=== PATIENT | female | born 1995 | race Caucasian/White ===

== ENCOUNTER 2017-09-09 21:18 | Outpatient (CLI) | payer OTHER ==
[2017-09-09 21:53] LABS: APPEARANCE,URINE CLEAR; BILIRUBIN,URINE NEGATIVE (NEGATIVE); COLOR,URINE YELLOW; GLUCOSE, URINE NEGATIVE (NEGATIVE); KETONES,URINE NEGATIVE (NEGATIVE); LEUKOCYTE ESTERASE,URINE NEGATIVE (NEGATIVE); NITRITE,URINE NEGATIVE (NEGATIVE); PROTEIN,URINE NEGATIVE (NEGATIVE); URINE SPECIFIC GRAVITY 1.004; UROBILINOGEN,URINE NEGATIVE mg/dL (<2.0)
[2017-09-09 22:12] LABS: URINE AMPHETAMINES SCREEN NEGATIVE; URINE BARBITURATES SCREEN NEGATIVE; URINE BENZODIAZEPINES SCREEN NEGATIVE; URINE COCAINE SCREEN NEGATIVE; URINE MARIJUANA (THC) SCREEN NEGATIVE; URINE METHADONE SCREEN NEGATIVE; URINE PHENCYCLIDINE SCREEN NEGATIVE
--- NOTE | 2017-09-09 22:52 | Non Stress Test Report ---
Non Stress Test Datetime Report Generated by CPN: 09/09/2017 22:52 DEMOGRAPHIC EGA NST: 37.6 INDICATION Indication for Study: Ordered by Provider; Other Indication for Study (NST) Other: LC MONITORING Monitor Explained: Monitor Explained; Test Explained; Patient Verbalized Understanding Time on Monitor: 09/09/2017 21:34 Time off Monitor: 09/09/2017 22:35 NST Duration: 61 NST INTERVENTIONS NST Interventions: None Physician Notified NST: Dr Cameron BABY A: [id number] BABY A Movement : Present Contraction Frequency : 4-7 FHR Baseline : 140 Accelerations : 15X15 Decelerations : None Variability : Moderate 6-25bpm NST Review: Meets Criteria for Reactive NST NST Review and Verified By : Rosalio Dumont RN NST Results: Reactive NST REPORT Report Trigger: Send Report
== END 2017-09-09 22:46 | disposition home or self-care (01) ==
LOC: LC 21:18
PROVIDERS: ATTEND Obstetrics & Gynecology
PROC: 4A1HXCZ Monitoring of Products of Conception, Cardiac Rate, External Approach (ICD-10-PCS; principal; 2017-09-09)
DX: O47.1 False labor at or after 37 completed weeks of gestation (principal); O36.8130 Decreased fetal movements, third trimester, not applicable or unspecified; Z3A.37 37 weeks gestation of pregnancy
CPT/HCPCS: 59025; 80307; 81001

== ENCOUNTER 2017-09-15 10:15 | Inpatient (IN) | payer OTHER ==
[2017-09-15 11:05] LABS: ABSOLUTE LYMPHOCYTES (AUTO) 1.6 10^3/uL (0.5-4.7); ABSOLUTE MONOCYTES (AUTO) 0.5 10^3/uL (0.1-1.4); ABSOLUTE NEUT (AUTO) 10.2 10^3/uL (1.7-8.2); BASOPHILS % (AUTO) 0.4 % (0-2); HEMATOCRIT 38.6 % (36.0-47.0); HEMOGLOBIN 12.7 g/dL (12.0-15.5); MEAN CORPUSCULAR HGB CONC 32.9 g/dL (32.0-36.0); MEAN CORPUSCULAR VOLUME 85 fl (80-97); PLATELET COUNT 262 10^3/uL (150-450); RED BLOOD COUNT 4.54 10^6/uL (3.72-5.28); RED CELL DISTRIBUTION WIDTH 13.8 % (11.5-14.0); SEGMENTED NEUTROPHILS % (AUTO) 82.6 % (42-78); TOTAL CELLS COUNTED % (AUTO) 100 %; WHITE BLOOD COUNT 12.4 10^3/uL (4.0-10.5)
[2017-09-15 11:21] LABS: ALANINE AMINOTRANSFERASE 118 U/L (5-35); ALBUMIN 3.9 g/dL (3.7-5.6); ALKALINE PHOSPHATASE 199 U/L (50-135); ANION GAP 12 (5-19); ASPARTATE AMINO TRANSFERASE 52 U/L (5-30); BILIRUBIN,DIRECT 0.4 mg/dL (0.0-0.4); BILIRUBIN,TOTAL 0.5 mg/dL (0.2-1.3); BLOOD UREA NITROGEN 6 mg/dL (7-20); CALCIUM 9.9 mg/dL (8.4-10.2); CARBON DIOXIDE 21 mmol/L (22-30); CHLORIDE 107 mmol/L (98-107); GLUCOSE 88 mg/dL (75-110); LDH 403 U/L (340-670); POTASSIUM 4.7 mmol/L (3.6-5.0); SODIUM 139.7 mmol/L (137-145); TOTAL PROTEIN 7.1 g/dL (6.3-8.2); URIC ACID 5.2 mg/dL (2.5-6.2)
[2017-09-15 11:31] LABS: APPEARANCE,URINE CLEAR; BILIRUBIN,URINE NEGATIVE (NEGATIVE); COLOR,URINE YELLOW; GLUCOSE, URINE NEGATIVE (NEGATIVE); KETONES,URINE NEGATIVE (NEGATIVE); LEUKOCYTE ESTERASE,URINE NEGATIVE (NEGATIVE); NITRITE,URINE NEGATIVE (NEGATIVE); PROTEIN,URINE NEGATIVE (NEGATIVE); URINE SPECIFIC GRAVITY 1.012; UROBILINOGEN,URINE NEGATIVE mg/dL (<2.0)
[2017-09-15 11:53] LABS: URINE AMPHETAMINES SCREEN NEGATIVE; URINE BARBITURATES SCREEN NEGATIVE; URINE BENZODIAZEPINES SCREEN NEGATIVE; URINE COCAINE SCREEN NEGATIVE; URINE MARIJUANA (THC) SCREEN NEGATIVE; URINE METHADONE SCREEN NEGATIVE; URINE PHENCYCLIDINE SCREEN NEGATIVE
[2017-09-15 11:56] LABS: UR PRO/CREAT RATIO RESULT 0.2 mg/mg (0.0-0.2); URINE CREATININE 68.8 mg/dL (16-327)
[2017-09-15] MEDS ORDERED: RINGERS SOLUTION,LACTATED 300 ML IV ONE (13:03)
[2017-09-15] MEDS ORDERED: OXYTOCIN/NORMAL SALINE 20 UNIT/1,000 ML RTUINJ IV PRN (13:03)
--- NOTE | 2017-09-15 13:21 | Admission Physical ---
Datetime Report Generated by CPN: 09/15/2017 13:20 CURRENT ADMISSION Hx Assessment: The History has been Reviewed and is Current Chief Complaint: Sent from OB Office for Evaluation and Treatment - Please Specify Chief Complaint Other: IUGR and suspected cholestasis Indication for Induction: IUGR; Other Indication for Induction: Term, Intrauterine Admit Plan: Admit to Unit; Initiate Labor Induction Protocol ALLERGIES Medication Allergies: No Medication Allergies: No Known Allergies (09/15/2017) Latex: No Latex Allergies Food Allergies: none Environmental Allergies: none OBSTETRICAL HISTORY EDC: 09/24/2017 00:00 : 1 Para: 0 Term: 0 : 0 SAB: 0 IAB: 0 Ectopic: 0 Livin Cesareans: 0 VBACs: 0 Multiple Births: 0 Gestational Diabetes: No Rh Sensitization: No Incompetent Cervix: No JEFFREY: No Infertility: No ART Treatment: No Uterine Anomaly: No IUGR: No Hx Previous C/S: No Macrosomia: No Hx Loss/Stillborn: No PIH: No Hx : No Placenta Previa/Abruption: No Depression/PP Depression: No PTL/PROM: No Post Hemorrhage: No Current Procedures: Ultrasound Obstetrical History Comments: G1- current SEE RECORDS Alcohol: No Marijuana : No Cocaine: No Other Illicit Drugs: No Cigarettes: Never Smoker. 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 Heart Disease: No Hosp/Surgery: No Autoimmune Disorder: No Anesthetic Complications: No Kidney Disease: Yes Abnormal Pap Smear: No Neuro/Epilepsy: No Psychiatric Disorders: No Other Medical Diseases: No Hepatitis/Liver Disease: No Significant Family History: No Varicosities/Phlebitis: No Trauma/Violence : No Thyroid Dysfunction: No Medical History Comments: PCOS, kidney stones recurring last October 2015 INFECTIOUS HISTORY Gonorrhea: No Genital Herpes: No Chlamydia: No Tuberculosis: No Syphilis: No Hepatitis: No HIV/AIDS Exposure: No Rash or Viral Illness: No HPV: No PHYSICAL EXAM General: Normal Neurologic: Normal Heart: Normal Lungs: Normal Back: Normal Genitourinary Exam: Normal Pelvic Type: Adequate Vital Signs: Reviewed; Within Normal Limits VAGINAL EXAM Dilatation: 3-4 Effacement: 60 Station: -1 Contraction Comments: irreg MEMBRANES Membranes: Bulging FETUS A EGA: 38.5 Monitoring: External US FHR- Baseline: 145 Variability: Moderate 6-25bpm Accelerations: 15X15 Decelerations: None FHR Category: Category I Estimated Weight (gm): 2700 Presentation: Vertex Admit Comment: 21yo @ 38w5d sent from office for PIH evaluation after elevated BP in office and with questionable cholestasis after itching of hands and feet x2 days. Normal Bps while at L_D, denies headache/blurry vision/RUQ pain or other concerns other than the itching. Elevated liver enzymes, bile acids pending. Pt. is O positive, RI and GBS neg. also with new dx of IUGR at 7%ile today. Will be admitted and induced with pitocin based on exam. Reviewed plan of care with patient and who asked questions and verbalized understanding. Dr. Colindres in unit and concurs with plan. PLANS FOR LABOR AND DELIVERY Labor and Delivery: None Pain Management: Natural Feeding Preference: Breast Benefit of Breast Feed Discussed: Yes Circumcision: No INFORMED CONSENT Assignment: Ruthann Colindres MD Signature: with User ID: Abraham : with User ID: Abraham
[2017-09-15] MEDS ORDERED: LIDOCAINE 1% INJ-PF (10 MG/ML) 30 ML SDV ONE (13:33)
[2017-09-15] MEDS ORDERED: MISOPROSTOL 0.2 MG TABLET ONE (13:33)
[2017-09-15] MEDS ORDERED: OXYTOCIN/NORMAL SALINE 20 UNIT/1,000 ML RTUINJ ONE (13:33)
[2017-09-15] MEDS: RINGERS SOLUTION,LACTATED 1,000 ML IV PRN ×2 (14:16→17:43)
[2017-09-15] MEDS ORDERED: DEXTROSE 5%-LACTATED RINGERS 1,000 ML IV PRN (15:02)
[2017-09-15] MEDS ORDERED: PROMETHAZINE HCL INJ 25 MG/1 ML VIAL IV ONE (17:07)
[2017-09-15] MEDS ORDERED: NALBUPHINE HCL INJ 10 MG/1 ML AMPULE INJ ONE (17:07)
[2017-09-15] MEDS ORDERED: NALBUPHINE HCL INJ 10 MG/1 ML AMPULE ONE (17:08)
[2017-09-15] MEDS ORDERED: PROMETHAZINE HCL INJ 25 MG/1 ML VIAL ONE (17:08)
[2017-09-15] MEDS ORDERED: FENTANYL/BUPIVACAINE/NS/PF 200 MCG/100 ML RTUINJ EPI ONE (19:38)
[2017-09-15] MEDS ORDERED: EPHEDRINE SULFATE INJ 50 MG/1 ML AMPULE ONE (19:38)
[2017-09-15] MEDS ORDERED: BUPIVACAINE HCL 0.25 % INJ/PF (2.5 MG/1 ML) 30 ML VIAL ONE (19:39)
--- NOTE | 2017-09-15 21:02 | L&D Progress Notes ---
PROGRESS NOTES Datetime Report Generated by CPN: 09/15/2017 21:02 PROGRESS NOTE Impression: Normal Progression of Labor Impression Other: IOL for cholestasis with elevated LFTs Procedures: Artificial ROM; Sterile Vag Exam Plan: Continue Present Management; Induction Informed Consent Obtained: Vaginal Delivery; Risks, Benefits and Alternatives Discussed Vital Signs : Reviewed Comment: Pt reported SROM at 1900 and is now comfortable status post epidural. Cvx 7/80/-1 and BB noted which was AROM. Clear fluid noted. Anticpate . Vertex presentation. Per US approx 5# today (IUGR 7%) VAGINAL EXAM Dilatation: 7 Dilatation: 3-4 Effacement: 80 Effacement: 60 Station: -1 Station: -1 Contractions: q 2-3 Contractions: irreg MEMBRANES Membranes: Ruptured Membranes: Bulging Amniotic Fluid Color: Clear FETUS A FHR - Baseline: 145 Variability: Moderate 6-25bpm Accelerations: 15X15 Decelerations: None FHR Category: Category I Estimated Weight (gm): 2700 Presentation: Vertex SIGNATURE SIGNATURE: [id number];[id number];[id number] SIGNATURE: [id number];14,[id number] SIGNATURE: [id number] Signature: with User ID: [email or web address]
[2017-09-16] MEDS ORDERED: DIPHENHYDRAMINE HCL 50 MG/ML VIAL ONE (00:30)
[2017-09-16] MEDS: RINGERS SOLUTION,LACTATED 1,000 ML IV PRN (00:33)
--- NOTE | 2017-09-16 00:41 | L&D Progress Notes ---
PROGRESS NOTES Datetime Report Generated by CPN: 09/16/2017 00:41 PROGRESS NOTE Impression: Normal Progression of Labor Procedures: Sterile Vag Exam Plan: Continue Present Management; Induction Informed Consent Obtained: Vaginal Delivery; Risks, Benefits and Alternatives Discussed Vital Signs : Reviewed Comment: Called to see patient due to feeling the need to push. Was previously told that cervix was Anterior lip. Cvx is actually 8cm. Offered to have anesthesia eval epidural. VAGINAL EXAM Dilatation: 8 Effacement: 80 Station: -1 MEMBRANES Membranes: Ruptured Amniotic Fluid Color: Clear FETUS A FHR - Baseline: 155 Monitoring: External US Variability: Moderate 6-25bpm Accelerations: 15X15 Decelerations: None FHR Category: Category I FETUS C SIGNATURE: [id number];[id number];[id number] Signature: with User ID: [email or web address]
[2017-09-16] MEDS ORDERED: LIDOCAINE 2% INJ-PF (20 MG/ML) 10 ML AMPUL ONE (01:08)
--- NOTE | 2017-09-16 01:58 | Warning Signs in Babies ---
VOD Warning Signs Datetime Report Generated by [facility]: 09/16/2017 01:58 VOD#608 -Warning Signs in Babies: Viewed with Parent(s)/Family (09/16/2017 01:45:Bhavya Lopez RN)
[2017-09-16] MEDS ORDERED: ACETAMINOPHEN WITH CODEINE #3 TABLET PO PRN (02:20)
[2017-09-16] MEDS ORDERED: PROMETHAZINE HCL 25 MG SUPP.RECT PR PRN (02:20)
[2017-09-16] MEDS ORDERED: ZOLPIDEM TARTRATE 5 MG TABLET PO PRN (02:20)
[2017-09-16] MEDS ORDERED: ACETAMINOPHEN 325 MG TABLET PO PRN (02:20)
[2017-09-16] MEDS ORDERED: GLYCERIN/WITCH HAZEL LEAF 1 EACH MED..PAD TP PRN (02:20)
[2017-09-16] MEDS ORDERED: DIPHENHYDRAMINE HCL 25 MG CAPSULE PO PRN (02:20)
[2017-09-16] MEDS ORDERED: BENZOCAINE/MENTHOL AEROSOL SPRAY 56 ML TOP PRN (02:20)
[2017-09-16] MEDS ORDERED: OXYTOCIN/NORMAL SALINE 20 UNIT/1,000 ML RTUINJ IV PRN (02:20)
[2017-09-16] MEDS ORDERED: PROMETHAZINE HCL 25 MG TABLET PO PRN (02:20)
[2017-09-16] MEDS ORDERED: MAGNESIUM HYDROXIDE SUSP 30 ML UDCUP PO PRN (02:20)
[2017-09-16] MEDS ORDERED: NA PHOS,M-B/NA PHOS,DI-BA (ADULT) 133 ML ENEMA PR PRN (02:20)
[2017-09-16] MEDS ORDERED: MEASLES,MUMPS&RUBELLA VACC/PF 0.5 ML VIAL SUBCUT PRN (02:20)
[2017-09-16] MEDS ORDERED: DIBUCAINE 1% OINTMENT 28 GM TP PRN (02:20)
[2017-09-16] MEDS ORDERED: PROMETHAZINE HCL INJ 25 MG/1 ML VIAL IV PRN (02:20)
[2017-09-16] MEDS ORDERED: PSEUDOEPHEDRINE HCL 30 MG TABLET PO PRN (02:20)
[2017-09-16] MEDS ORDERED: DIPH/PERTUSS(ACELL)/TETANUS VAC/PF 0.5 ML SYR (>=10YO) IM PRN (02:20)
[2017-09-16] MEDS ORDERED: ACETAMINOPHEN WITH CODEINE #3 TABLET ONE (02:22)
--- NOTE | 2017-09-16 03:34 | Delivery Summary ---
Del Sum A-C Datetime Report Generated by CPN: 09/16/2017 03:33 DELIVERY PERSONNEL DELIVERY PERSONNEL: [id number] Delivery Doctor:: Ruthann Colindres MD Anesthesiologist:: Rick Mcclellan MD Labor and Delivery Nurse:: Bhavya Lopez RNoperators teacher Nurse:: Camelia Chiang RN Hydropress Operator/COMMERCIAL LINES ACCOUNT EXECUTIVE: Hien Green, ST MATERNAL INFORMATION Delivery Anesthesia: Epidural Medications After Delivery: Pitocin Drip 20 Units/1000ml NSS Estimated Blood Loss (ml): 350 Maternal Complications: None Provider Comments: VMI delivered in Direct OA presentation with compound right hand. Shoulders and body delivered without difficulty. Cord doubly clamped and to maternal abd. Placenta delivered intact spontaneously and sent for pathology due to IUGR. FF at U. No perineal lacerations. Mother and baby stable upon provider leaving the room. LABOR SUMMARY EDC: 09/24/2017 00:00 No. Babies in Womb: 1 Attempted: No Labor Anesthesia: Epidural LABOR INFORMATION Reason for Induction: Intrauterine Growth Retardation; Other Reason for Induction- Other: cholestasis Onset of Labor: 09/15/2017 20:51 Complete Dilatation: 09/16/2017 01:10 Oxytocin: Induction Group B Beta Strep: negative Antibiotics # of Doses: 0 Steroids Given: None Reason Steroids Not Administered: Not Applicable MEMBRANES Membranes Rupture Method: Artificial Rupture of Membranes: 09/15/2017 20:51 Length of Rupture (hr): 4.58 Amniotic Fluid Color: Clear Amniotic Fluid Amount: Large Amniotic Fluid Odor: Normal STAGES OF LABOR Stage 1 hr: 4 Stage 1 min: 19 Stage 2 hr: 0 Stage 2 min: 16 Stage 3 hr: 0 Stage 3 min: 2 Total Time in Labor hr: 4 Total Time in Labor min: 37 VAGINAL DELIVERY Episiotomy: None Laceration #1: None Laceration Extension #1: N/A Laceration Repair: Not Applicable Sponge Count Correct: N/A Sharps Count Correct: N/A CSECTION DELIVERY Primary Indication: N/A Secondary Indication: N/A CSection Incidence: N/A Labor: N/A Elective: N/A CSection Incision: N/A BABY A INFORMATION Delivery Date/Time: 09/16/2017 01:26 Method of Delivery: Vaginal Born in Route : No : N/A Forceps: N/A Vacuum Extraction: N/A Shoulder Dystocia : No PRESENTATION/POSITION BABY A Presentation: Cephalic Cephalic Presentation: Vertex Vertex Position: Direct Occipital Anterior Breech Presentation: N/A PLACENTA INFORMATION BABY A Placenta Delivery Time : 09/16/2017 01:28 Placenta Method of Delivery: Spontaneous Placenta Status: Delivered SCORES BABY A Heart Rate 1 min: >100 bpm Resp Effort 1 min: Good Cry Reflex Irritability 1 min: Cough or Sneeze or Pulls Away Muscle Tone 1 min: Active Motion Color 1 min: Body [place], Extremities Blue Resuscitation Effort 1 min: Tactile Stimulation SCORE 1 MIN: 9 Heart Rate 5 min: >100 bpm Resp Effort 5 min: Good Cry Reflex Irritability 5 min: Cough or Sneeze or Pulls Away Muscle Tone 5 min: Active Motion Color 5 min: Body [place], Extremities Blue Resuscitation Effort 5 min: N/A SCORE 5 MIN: 9 INFORMATION BABY A Gestational Age at Delivery: 38.6 Gestational Status: Early Term- 37- 38.6 Weeks Outcome : Liveborn Infant Condition : Stable Sex: Male IDENTIFICATION BABY A Verification Date/Time: 09/16/2017 01:58 ID Band Number: [id number] Mother's Name Verified: Yes Infant RN Verifying : NDoyle RN Additional Verifying Personnel: RFox RN CORD INFORMATION BABY A No. Cord Vessels: 3 Nuchal Cord : N/A Nuchal Cord- Other: R compound hand Cord Blood Taken: Yes-For Eval (Mom's Blood Type - or O+) Infant Suction: None ASSESSMENT BABY A Physical Findings at Delivery: Within Normal Limits Respirations: Appears Normal Skin to Skin: Yes Insurance Agency Manager/ALS Called : No Infant Care By: KWessel Transferred To: Remains with Mother BABY B INFORMATION : N/A SIGNATURES Signature: with User ID: [email or web address]
[2017-09-16] MEDS: IBUPROFEN 800 MG TABLET PO SCH ×3 (05:29→21:06)
--- NOTE | 2017-09-16 09:02 | PDOC PROGRESS REPORT ---
Subjective-OB Progress Note for:: 09/16/17 Subjective: Doing well, holding baby, voiding, scant bleeding Physical Exam (OB) Vital Signs: Temp Pulse Resp BP Pulse Ox 98.2 F 73 16 123/58 L 98 09/16/17 04:21 09/16/17 04:21 09/16/17 04:21 09/16/17 04:21 09/16/17 04:21 Intake & Output 09/15/17 09/16/17 09/17/17 06:59 06:59 06:59 Weight 76.2 kg - Lochia Lochia Amount: Small 10-25 ml Lochia Color: Rubra/Red - Abdomen Description: Soft Hernia Present: No Fundal Description: Firm, Midline Fundal Height: u/u - u/2 Objective-Diagnostic Laboratory: 09/15/17 10:34 09/15/17 10:34 09/15/17 09/15/17 09/15/17 10:34 10:34 10:36 WBC 12.4 H RBC 4.54 Hgb 12.7 Hct 38.6 MCV 85 MCH 28.0 MCHC 32.9 RDW 13.8 Plt Count 262 Seg Neutrophils % 82.6 H Lymphocytes % 13.0 Monocytes % 4.0 Eosinophils % 0.0 Basophils % 0.4 Absolute Neutrophils 10.2 H Absolute Lymphocytes 1.6 Absolute Monocytes 0.5 Absolute Eosinophils 0.0 Absolute Basophils 0.0 Sodium 139.7 Potassium 4.7 Chloride 107 Carbon Dioxide 21 L Anion Gap 12 BUN 6 L Creatinine 0.53 Est GFR ( Amer) > 60 Est GFR (Non-Af Amer) > 60 Glucose 88 Uric Acid 5.2 Calcium 9.9 Total Bilirubin 0.5 AST 52 H ALT 118 H Alkaline Phosphatase 199 H Total Protein 7.1 Albumin 3.9 Urine Color YELLOW Urine Appearance CLEAR Urine pH 6.0 Ur Specific [place] 1.012 Urine Protein NEGATIVE Urine Glucose (UA) NEGATIVE Urine Ketones NEGATIVE Urine Blood MODERATE H Urine Nitrite NEGATIVE Ur Leukocyte Esterase NEGATIVE Blood Type Antibody Screen 09/15/17 13:54 WBC RBC Hgb Hct MCV MCH MCHC RDW Plt Count Seg Neutrophils % Lymphocytes % Monocytes % Eosinophils % Basophils % Absolute Neutrophils Absolute Lymphocytes Absolute Monocytes Absolute Eosinophils Absolute Basophils Sodium Potassium Chloride Carbon Dioxide Anion Gap BUN Creatinine Est GFR ( Amer) Est GFR (Non-Af Amer) Glucose Uric Acid Calcium Total Bilirubin AST ALT Alkaline Phosphatase Total Protein Albumin Urine Color Urine Appearance Urine pH Ur Specific [place] Urine Protein Urine Glucose (UA) Urine Ketones Urine Blood Urine Nitrite Ur Leukocyte Esterase Blood Type O POSITIVE Antibody Screen NEGATIVE Assessment and Plan(PN) - Assessment and Plan (1) Vaginal delivery Is this a current diagnosis for this admission?: Yes (2) Intrauterine growth restriction, delivered, current hospitalization Is this a current diagnosis for this admission?: Yes (3) Cholestasis during Qualifiers: Trimester: third trimester Qualified Code(s): O26.613 - Liver and biliary tract disorders in , third trimester; K83.1 - Obstruction of bile duct ; K83.1 - Obstruction of bile duct Is this a current diagnosis for this admission?: Yes - Time Spent with Patient Time with patient: Less than 15 minutes Medications reviewed and adjusted accordingly: Yes - Disposition Anticipated Discharge: Home Within: within 48 hours
[2017-09-16] MEDS: FAMOTIDINE 20 MG TABLET PO SCH ×2 (10:32→21:05)
[2017-09-16] MEDS: DOCUSATE SODIUM 100 MG CAPSULE PO SCH ×2 (10:37→18:39)
[2017-09-16] MEDS: PRENATAL VITAMIN W DHA CAPSULE PO SCH (10:37)
[2017-09-16] MEDS: FERROUS SULFATE 325 MG TABLET PO SCH ×2 (10:37→18:39)
[2017-09-16] MEDS: SENNOSIDES/DOCUSATE 8.6-50 MG 1 EACH TABLET PO SCH (10:37)
[2017-09-16] MEDS: ACETAMINOPHEN WITH CODEINE #3 TABLET PO PRN (12:07)
[2017-09-17] MEDS: ACETAMINOPHEN WITH CODEINE #3 TABLET PO PRN ×2 (02:02→12:26)
[2017-09-17] MEDS: IBUPROFEN 800 MG TABLET PO SCH ×3 (05:23→21:07)
[2017-09-17 07:55] LABS: HEMATOCRIT 34.5 % (36.0-47.0); HEMOGLOBIN 11.3 g/dL (12.0-15.5); MEAN CORPUSCULAR HEMOGLOBIN 28.1 pg (27.0-33.4); MEAN CORPUSCULAR HGB CONC 32.6 g/dL (32.0-36.0); MEAN CORPUSCULAR VOLUME 86 fl (80-97); PLATELET COUNT 195 10^3/uL (150-450)
--- NOTE | 2017-09-17 09:48 | PDOC PROGRESS REPORT ---
Subjective-OB Progress Note for:: 09/17/17 Physical Exam (OB) Vital Signs: Temp Pulse Resp BP Pulse Ox 97.6 F 66 15 135/76 H 100 09/17/17 08:16 09/17/17 08:16 09/17/17 08:16 09/17/17 08:16 09/17/17 08:16 Intake & Output 09/16/17 09/17/17 09/18/17 06:59 06:59 06:59 Intake Total 650 Balance 650 Weight 76.2 kg - PIH/Pre-Eclampsia Headache: Absent Epigastric Pain: No Visual Changes: No - Lochia Lochia Amount: Scant < 10 ml Lochia Color: Rubra/Red - Abdomen Description: Soft Hernia Present: No Fundal Description: Firm, Midline Fundal Height: u/u - u/2 - Respiratory Breath sounds: Clear - Extremities Calf: Normal Objective-Diagnostic Laboratory: 09/17/17 07:01 09/15/17 10:34 09/17/17 07:01 WBC 11.0 H RBC 4.00 Hgb 11.3 L Hct 34.5 L MCV 86 MCH 28.1 MCHC 32.6 RDW 14.0 Plt Count 195 Assessment and Plan(PN) - Assessment and Plan (1) Vaginal delivery Is this a current diagnosis for this admission?: Yes - Time Spent with Patient Time with patient: Less than 15 minutes Medications reviewed and adjusted accordingly: Yes - Disposition Anticipated Discharge: Home Within: within 24 hours
[2017-09-17] MEDS: DOCUSATE SODIUM 100 MG CAPSULE PO SCH ×2 (09:49→17:50)
[2017-09-17] MEDS: SENNOSIDES/DOCUSATE 8.6-50 MG 1 EACH TABLET PO SCH (09:49)
[2017-09-17] MEDS: FAMOTIDINE 20 MG TABLET PO SCH ×2 (09:49→21:07)
[2017-09-17] MEDS: PRENATAL VITAMIN W DHA CAPSULE PO SCH (09:49)
[2017-09-17] MEDS: FERROUS SULFATE 325 MG TABLET PO SCH ×2 (09:50→17:50)
[2017-09-18] MEDS: ACETAMINOPHEN WITH CODEINE #3 TABLET PO PRN (02:21)
[2017-09-18] MEDS: IBUPROFEN 800 MG TABLET PO SCH (05:04)
[2017-09-18 08:36] VITALS: BP 125/80
--- NOTE | 2017-09-18 09:33 | PDOC DISCHARGE SUMMARY ---
Final Diagnosis Discharge Date: 09/18/17 - Final Diagnosis (1) Cholestasis during Is this a current diagnosis for this admission?: Yes (2) Intrauterine growth restriction, delivered, current hospitalization Is this a current diagnosis for this admission?: Yes (3) Vaginal delivery Is this a current diagnosis for this admission?: Yes Discharge Data - Discharge Medication Prescriptions: Docusate Sodium [Colace 100 mg Capsule] 100 mg PO BID #60 capsule Ibuprofen [Motrin 800 mg Tablet] 800 mg PO Q8 #60 tablet Home Medications: Pnv No.95/Ferrous Fum/Folic AC [ Multivitamin Tablet] 1 each PO DAILY Docusate Sodium [Colace 100 mg Capsule] 100 mg PO BID #60 capsule 09/18/17 Ibuprofen [Motrin 800 mg Tablet] 800 mg PO Q8 #60 tablet 09/18/17 Gestational Age: 38.6 Reason(s) for Admission: Other - cholestasis of , iugr Procedures: NST Intrapartum Procedure(s): Spontaneous Vaginal Delivery - Diagnosis Test Laboratory: Temp Pulse Resp BP Pulse Ox 97.7 F 68 15 125/80 100 09/18/17 07:36 09/18/17 07:36 09/18/17 07:36 09/18/17 07:36 09/18/17 07:36 09/15/17 09/15/17 09/17/17 10:34 10:36 07:01 RBC 4.54 4.00 Hgb 12.7 11.3 L Hct 38.6 34.5 L Urine Opiates Screen NEGATIVE - Discharge information/Instructions Discharge Activity: Activity As Tolerated, Pelvic Rest, No tub bath Discharge Diet: Regular Disposition: HOME, SELF-CARE Follow up with: [facility] in: 4, Weeks
[2017-09-18] MEDS: SENNOSIDES/DOCUSATE 8.6-50 MG 1 EACH TABLET PO SCH (09:37)
[2017-09-18] MEDS: DOCUSATE SODIUM 100 MG CAPSULE PO SCH (09:37)
[2017-09-18] MEDS: FAMOTIDINE 20 MG TABLET PO SCH (09:37)
[2017-09-18] MEDS: FERROUS SULFATE 325 MG TABLET PO SCH (09:37)
[2017-09-18] MEDS: PRENATAL VITAMIN W DHA CAPSULE PO SCH (09:37)
== END 2017-09-18 13:44 | disposition home or self-care (01) | DRG 775 ==
LOC: LC 10:15 → LR 12:03 → 2S 09-16 03:41
PROVIDERS: ADMIT Student in an Organized Health Care Education/Training Program; ATTEND Student in an Organized Health Care Education/Training Program
PROC: 10E0XZZ Delivery of Products of Conception, External Approach (ICD-10-PCS; principal; 2017-09-16)
PROC: 4A1HXCZ Monitoring of Products of Conception, Cardiac Rate, External Approach (ICD-10-PCS; 2017-09-16)
PROC: 10907ZC Drainage of Amniotic Fluid, Therapeutic from Products of Conception, Via Natural or Artificial Opening (ICD-10-PCS; 2017-09-16)
DX: O36.5930 Maternal care for other known or suspected poor fetal growth, third trimester, not applicable or unspecified (principal); K83.1 Obstruction of bile duct; O26.62 Liver and biliary tract disorders in childbirth; O32.6XX0 Maternal care for compound presentation, not applicable or unspecified; Z37.0 Single live birth; Z3A.38 38 weeks gestation of pregnancy; Z87.442 Personal history of urinary calculi
CPT/HCPCS: 36415; 80053; 80307; 81005; 82239; 82570; 83615; 84156; 84550; 85025; 85027; 86592; 86850; 86900; 86901; 88307; 94760; J1200; J2300; J2550; J2590; J3490

== ENCOUNTER 2019-11-24 21:40 | Emergency (ER) | payer OTHER ==
[2019-11-24] MEDS ORDERED: KETOROLAC TROMETHAMINE INJ/PF 30 MG/1 ML SDV IM ONE (22:19)
[2019-11-24] MEDS ORDERED: NORMAL SALINE 1000 ML 1,000 ML IV ONE (22:20)
--- NOTE | 2019-11-24 22:22 | ER Document Report ---
ED Medical Screen (RME) - General Chief Complaint: Abdominal Pain Stated Complaint: ABDOMINAL PAIN Time Seen by Provider: 11/24/19 22:11 Primary Care Provider: BRANNON REA MD [Primary Care Provider] - Follow up as needed Mode of Arrival: Ambulatory Information source: Patient Notes: 24-year-old female presented to ED for right upper quadrant abdominal pain since morning. She states about 5 PM she took 200 mg of ibuprofen and the pain did not get any better. She states about 8 PM the pain was so bad that it became hard to brace for a little while. She states she is able to breathe now but the pain is still pretty bad. She states that she had a turkey and cheese sandwich with mayonnaise for supper tonight. She does have a history of kidney stones. Last menstrual period was November 04. She states she does not smoke drink or use any illicit drugs. Patient is alert oriented respirations regular and unlabored speaking in full sentences. We have given her Toradol injection in the pit area and I have ordered blood urine and ultrasound of the right upper quadrant. I have greeted and performed a rapid initial assessment of this patient. A comprehensive ED assessment and evaluation of the patient, analysis of test results and completion of medical decision making process will be conducted by an additional ED providers. TRAVEL OUTSIDE OF THE [place] IN LAST 30 DAYS: No - Related Data Allergies/Adverse Reactions: No Known Allergies Allergy (Verified 09/15/17 10:33) Home Medications: vitamins Physical Exam - Vital signs Vitals: Temp Pulse Resp BP Pulse Ox 99.0 F 82 16 141/66 H 99 11/24/19 21:44 11/24/19 21:44 11/24/19 21:44 11/24/19 21:44 11/24/19 21:44 Course - Vital Signs Vital signs: Temp Pulse Resp BP Pulse Ox 99 F 82 16 141/66 H 99 11/24/19 22:09 11/24/19 21:44 11/24/19 21:44 11/24/19 21:44 11/24/19 21:44 Doctor's Discharge - Discharge Referrals: BRANNON REA MD [Primary Care Provider] - Follow up as needed
[2019-11-24 22:46] LABS: ABSOLUTE BASOPHILS # (AUTO) 0.1 10^3/uL (0.0-0.2); ABSOLUTE EOSINOPHILS # (AUTO) 0.4 10^3/uL (0.0-0.6); ABSOLUTE LYMPHOCYTES (AUTO) 2.2 10^3/uL (0.5-4.7); ABSOLUTE MONOCYTES (AUTO) 0.7 10^3/uL (0.1-1.4); ABSOLUTE NEUT (AUTO) 6.9 10^3/uL (1.7-8.2); BASOPHILS % (AUTO) 0.6 % (0-2); EOSINOPHILS % (AUTO) 3.9 % (0-6); HEMATOCRIT 38.6 % (36.0-47.0); LYMPHOCYTES % (AUTO) 21.3 % (13-45); MEAN CORPUSCULAR HEMOGLOBIN 28.6 pg (27.0-33.4); MEAN CORPUSCULAR HGB CONC 33.7 g/dL (32.0-36.0); MEAN CORPUSCULAR VOLUME 85 fl (80-97); MONOCYTES % (AUTO) 6.7 % (3-13); PLATELET COUNT 325 10^3/uL (150-450); RED BLOOD COUNT 4.55 10^6/uL (3.72-5.28); RED CELL DISTRIBUTION WIDTH 13.8 % (11.5-14.0); SEGMENTED NEUTROPHILS % (AUTO) 67.5 % (42-78); TOTAL CELLS COUNTED % (AUTO) 100 %; WHITE BLOOD COUNT 10.2 10^3/uL (4.0-10.5)
[2019-11-24 22:48] LABS: APPEARANCE,URINE SLIGHTLY-CLOUDY; BILIRUBIN,URINE NEGATIVE (NEGATIVE); COLOR,URINE YELLOW; GLUCOSE, URINE NEGATIVE (NEGATIVE); KETONES,URINE NEGATIVE (NEGATIVE); LEUKOCYTE ESTERASE,URINE MODERATE (NEGATIVE); NITRITE,URINE NEGATIVE (NEGATIVE); PROTEIN,URINE NEGATIVE (NEGATIVE); URINE SPECIFIC GRAVITY 1.023; UROBILINOGEN,URINE NEGATIVE mg/dL (<2.0)
[2019-11-24 23:03] LABS: ALBUMIN 4.5 g/dL (3.5-5.0); ALKALINE PHOSPHATASE 84 U/L (38-126); ANION GAP 10 (5-19); ASPARTATE AMINO TRANSFERASE 16 U/L (14-36); BILIRUBIN,TOTAL 0.2 mg/dL (0.2-1.3); BLOOD UREA NITROGEN 12 mg/dL (7-20); CALCIUM 9.5 mg/dL (8.4-10.2); CARBON DIOXIDE 25 mmol/L (22-30); CHLORIDE 103 mmol/L (98-107); GLUCOSE 94 mg/dL (75-110); POTASSIUM 3.9 mmol/L (3.6-5.0); TOTAL PROTEIN 7.7 g/dL (6.3-8.2)
--- NOTE | 2019-11-24 23:41 | ER Document Report ---
ED General - General Chief Complaint: Abdominal Pain Stated Complaint: ABDOMINAL PAIN Time Seen by Provider: 11/24/19 22:11 Primary Care Provider: BRANNON REA MD [ACTIVE STAFF] - Follow up as needed Mode of Arrival: Ambulatory TRAVEL OUTSIDE OF THE [place] IN LAST 30 DAYS: No - HPI Notes: Chief complaint: Abdominal pain nausea and vomiting History of present illness: 24-year-old female had sudden onset right upper quadrant discomfort this afternoon associated with nausea and vomiting which dev eloped about an hour and a half after she ate a turkey sandwich. No fever or chills. Pain radiated into right side of back. Ultimately relieved after she got here and was seen by midlevel provider at triage who gave her Toradol IM. She is currently pain-free. She still mildly nauseated. Patient denies dysuria. She denies hematuria. Patient reports that she had a lithotripsy at age 18 for a kidney stone. She denies any known history of gallbladder disease. No past abdominal surgery. No known exposure to ill individuals. Specifically denies exposure to COVID virus. No recent travel. - Related Data Allergies/Adverse Reactions: No Known Allergies Allergy (Verified 09/15/17 10:33) Home Medications: vitamins Past Medical History - General Information source: Patient - Social History Smoking Status: Never Smoker Family History: Reviewed & Not Pertinent Patient has homicidal ideation: No Renal/ Medical History: Reports: Hx Kidney Stones Review of Systems - Review of Systems Notes: Constitutional: Negative for fever. HENT: Negative for sore throat. Eyes: Negative for visual changes. Cardiovascular: Negative for chest pain. Respiratory: Negative for shortness of breath. Gastrointestinal: As per HPI. Genitourinary: As per HPI. Musculoskeletal: As per HPI. Skin: Negative for rash. Neurological: Negative for headaches, weakness or numbness. 10 point ROS negative except as marked above and in HPI. Physical Exam - Vital signs Vitals: Temp Pulse Resp BP Pulse Ox 99.0 F 82 16 141/66 H 99 11/24/19 21:44 11/24/19 21:44 11/24/19 21:44 11/24/19 21:44 11/24/19 21:44 - Notes Notes: GENERAL: Female patient approximately stated age currently appears comfortable. SKIN: Good turgor no rashes. HEAD: Normocephalic atraumatic. EYES: PERRLA. EOMI. Conjunctivae and sclerae clear. EARS: CANALS AND TMS CLEAR. NOSE: CLEAR. MOUTH: Moist mucosa. Good dentition. No stridor or edema. No drooling. NECK: Supple. No masses or thyromegaly. No adenopathy. Carotids 2+ without bruits. No JVD. BACK: Symmetrical without tenderness. CHEST: Respirations unlabored. Breath sounds clear and symmetrical. HEART: Regular rhythm. No murmur gallop or rub. ABDOMEN: Minimal tenderness on deep palpation right upper quadrant. Soft without masses, organomegaly or rebound. Bowel sounds normally active. No bruits. GENITALIA: Deferred. EXTREMITIES: No edema. No calf tenderness. Cap refill less than 1.5 seconds. Dorsalis pedis and posterior tibial pulses 3+ and symmetrical. NEUROLOGICAL: GCS 15. Alert and oriented x3. Normal gait. Fluent speech. Cranial nerves II through XII intact. Sensorimotor and cerebellar normal. Normal tone. PSYCHIATRIC: Appropriate affect. Course - Re-evaluation Re-evalutation: 11/25/19 01:52 Patient's discomfort was completely relieved by IM Toradol administered at triage. White count is normal. Chemistry profile is unremarkable. She has some pyuria and leukocyte esterase on urinalysis. Gallbladder ultrasound was negative. CT abdomen pelvis was obtained because of patient's prior history of renal stones but showed no obstructing stone. Patient appears to have an early right-sided pyelonephritis. She was started on a dose of IV Rocephin here will be discharged on Keflex and instructed to follow-up with her primary care physician within the next 24 hours. She will return here for new or worsening symptoms. - Vital Signs Vital signs: Temp Pulse Resp BP Pulse Ox 99 F 82 16 141/66 H 99 11/24/19 22:09 11/24/19 21:44 11/24/19 21:44 11/24/19 21:44 11/24/19 21:44 - Laboratory Result Diagrams: 11/24/19 22:30 11/24/19 22:30 Laboratory results interpreted by me: 11/24/19 22:30 Urine Blood SMALL H Ur Leukocyte Esterase MODERATE H - Diagnostic Test Radiology reviewed: Reports reviewed - Right upper quadrant ultrasound per radiologist: Fatty infiltration liver. Gallbladder normal Noncontrast CT a bdomen/pelvis per radiologist: Punctate calcifications of kidneys. No obstructing stone. Discharge - Discharge Clinical Impression: Acute pyelonephritis Condition: Stable Disposition: HOME, SELF-CARE Additional Instructions: Pyelonephritis Your evaluation shows evidence of pyelonephritis. This is an infection in the kidney. Typical symptoms are fever, pain in the flank, pain on urination, and frequent urination. Many cases of pyelonephritis can be treated at home. Hospital care may be necessary for patients who are very ill, or elderly or . Pyelonephritis is treated with antibiotics. Be sure to take all the medication as prescribed. Drink plenty of liquids (about three quarts per day). You may take acetaminophen for fever. You should feel significantly improved within two days. You should have a recheck of your urine in about one week to insure that the infection is gone. Return for a re-examination if your symptoms worsen in any way -- such as high fever, shaking chills, severe weakness or dizziness, severe pain, or inability to pass your urine. Increase oral fluid intake. Take prescribed medication as instructed. See your doctor within the next 24 to 48 hours for reevaluation. Return here as needed for new or worsening symptoms: Pain that is worsening or unimproved Uncontrolled vomiting High fever or shaking chills Overall worsening Prescriptions: Cephalexin Monohydrate [Keflex 500 mg Capsule] 500 mg PO Q6H 10 Days #40 capsule Referrals: BRANNON REA MD [ACTIVE STAFF] - Follow up as needed
--- NOTE | 2019-11-25 00:27 | RADIOLOGY REPORT (SQ) ---
EXAM DESCRIPTION: US ABDOMEN LIMITED COMPLETED DATE/TME: 11/24/2019 22:19 CLINICAL HISTORY: 24 years Female, right upper quad pain Comparison: None. LIMITATIONS: Bowel gas and body habitus artifact. FINDINGS: Gallbladder, negative sonographic Fontanez's test, mild hepatic steatosis, a 0.3-cm diameter common bile duct, no intrahepatic ductal dilation, hepatopetal patent flow of the portal vein, 11-cm right kidney, partially obscured pancreas, visualized vasculature/abdominal aorta, and no significant ascites appear otherwise unremarkable. IMPRESSION: No acute findings. Hepatic steatosis.
[2019-11-25] MEDS ORDERED: CEFTRIAXONE INJ 1000 MG VIAL IV ONE (01:45)
--- NOTE | 2019-11-25 01:45 | RADIOLOGY REPORT (SQ) ---
CLINICAL INDICATION: Right flank and RUQ pain. . TECHNIQUE: Noncontrast spiral axial CT imaging was obtained of the abdomen and pelvis with multiplanar reconstructions. This exam was performed according to our departmental dose-optimization program, which includes automated exposure control, adjustment of the mA and/or kV according to patient size and/or use of iterative reconstruction techniques. COMPARISON: None. CORRELATION: None. FINDINGS: Abdomen: The lung bases are grossly clear. The heart is of normal size. No evidence of pleural or pericardial fluid. The liver is of normal size contour and attenuation. The gallbladder is physiologically distended without inflammatory change. The pancreas is of grossly normal contour on this noncontrast examination. The spleen is unremarkable. The adrenals are unremarkable. The kidneys demonstrate punctate nonobstructing nephrolithiasis bilaterally. No obstructive uropathy. There is no evidence of free air. Trace free fluid. No bulky adenopathy. Abdominal aorta is nonaneurysmal. Pelvis: The bowel is nonobstructed. The bowel is unopacified with oral contrast. Pelvic contents are unremarkable. The appendix is not seen. Visualized bones are unremarkable. IMPRESSION: Punctate nonobstructing nephrolithiasis. No obstructive uropathy hydronephrosis or hydroureter.
[2019-11-25] MEDS ORDERED: HYDROCODONE/ACETAMINOPHEN 5-325 MG (6 TAB/ER DISP) PO PRN (01:49)
[2019-11-25] MEDS ORDERED: ONDANSETRON ODT 4 MG TAB (6 TAB/ER DISP) PO PRN (01:49)
[2019-11-25 02:35] VITALS: BP 122/65
== END 2019-11-25 02:39 | disposition home or self-care (01) ==
LOC: ER 21:40
DX: N10 Acute pyelonephritis (principal); R10.9 Unspecified abdominal pain; R11.2 Nausea with vomiting, unspecified; R10.11 Right upper quadrant pain; M54.9 Dorsalgia, unspecified
CPT/HCPCS: 36415; 83690; 84703; 85025; 80053; 81001; 76705; 74176; J1885; J0696; J7030

== ENCOUNTER 2020-03-03 13:47 | Emergency (ER) | payer OTHER ==
[2020-03-03] MEDS ORDERED: CEPHALEXIN 500 MG CAPSULE PO ONE (13:55)
[2020-03-03] MEDS ORDERED: IBUPROFEN 800 MG TABLET PO ONE (13:55)
[2020-03-03] MEDS ORDERED: SULFAMETHOXAZOLE/TRIMETHOPRIM 800-160 MG TABLET PO ONE (13:55)
--- NOTE | 2020-03-03 13:56 | ER Document Report ---
HPI - HPI Patient complains to provider of: Leg infection Time Seen by Provider: 03/03/20 13:51 Onset: Other - 3 days Onset/Duration: Worse Quality of pain: Achy Pain Level: 3 Context: Patient presents complaining of insect bite that is gotten infected to the left lower extremity. Patient denies any fever. Patient denies any history of MRSA. Associated Symptoms: Other - Left leg infection Exacerbated by: Denies Relieved by: Denies Similar symptoms previously: No Recently seen / treated by doctor: No - ROS ROS below otherwise negative: Yes Systems Reviewed and Negative: Yes All other systems reviewed and negative - CONSTITUTIONAL Constitutional: DENIES: Fever - REPRODUCTIVE Reproductive: DENIES: : - MUSCULOSKELETAL Musculoskeletal: REPORTS: Extremity pain, Swelling - DERM Skin Color: Erythema Past Medical History - General Information source: Patient - Social History Smoking Status: Never Smoker Frequency of alcohol use: Occasional Drug Abuse: None Occupation: None Family History: Reviewed & Not Pertinent Renal/ Medical History: Reports: Hx Kidney Stones Surgical Hx: Negative Vertical Provider Document - CONSTITUTIONAL Agree With Documented VS: Yes Exam Limitations: No Limitations General Appearance: WD/WN, No Apparent Distress - INFECTION CONTROL TRAVEL OUTSIDE OF THE [place] IN LAST 30 DAYS: No - HEENT HEENT: Atraumatic, Normocephalic - NECK Neck: Normal Inspection - RESPIRATORY Respiratory: Breath Sounds Normal, No Respiratory Distress - CARDIOVASCULAR Cardiovascular: Regular Rate, Regular Rhythm - MUSCULOSKELETAL/EXTREMETIES Musculoskeletal/Extremeties: MAEW - NEURO Level of Consciousness: Awake, Alert, Appropriate Motor/Sensory: No Motor Deficit - DERM Integumentary: Warm, Dry, Abscess - Anterior aspect of left lower extremity with surrounding erythema Course - Vital Signs Vital signs: Temp Pulse Resp BP Pulse Ox 98.3 F 95 16 147/77 H 99 03/03/20 13:52 03/03/20 13:52 03/03/20 13:52 03/03/20 13:52 03/03/20 13:52 Procedures - Incision and Drainage Left Leg Type: Simple Anesthetic type: 1% Lidocaine Blade size: 11 I&D procedure: Betadine prep applied Incision Method: Incision made by scalpel Amount/type of drainage: Scant amount of purulent drainage Adult Front & Back picture: 1 - Abscess with surrounding cellulitis Discharge - Discharge Clinical Impression: Abscess, Encounter for incision and drainage procedure Cellulitis Qualifiers: Site of cellulitis: extremity Site of cellulitis of extremity: lower extremity Laterality: left Qualified Code(s): L03.116 - Cellulitis of left lower limb Condition: Stable Disposition: HOME, SELF-CARE Instructions: Abscess ([facility]), Cephalexin ([facility]), Oral Narcotic Medication ([facility]), Post Incision and Drainage, Trimethoprim-Sulfa ([facility]) Additional Instructions: Return immediately for any new or worsening symptoms Followup with your primary care provider, call tomorrow to make a followup appointment Prescriptions: Sulfamethoxazole/Trimethoprim [Bactrim Ds Tablet] 1 each PO BID #20 tablet Cephalexin Monohydrate [Keflex 500 mg Capsule] 500 mg PO Q6H 5 Days #20 capsule Naproxen [Naprosyn 250 Nmg Tablet] 1 tab PO BID #14 tablet Referrals: [facility] [Provider Group] - Follow up as needed
[2020-03-03 14:33] VITALS: BP 140/82
== END 2020-03-03 14:31 | disposition home or self-care (01) ==
LOC: ER 13:47
DX: L02.416 Cutaneous abscess of left lower limb (principal); L03.116 Cellulitis of left lower limb; S80.862A Insect bite (nonvenomous), left lower leg, initial encounter; W57.XXXA Bitten or stung by nonvenomous insect and other nonvenomous arthropods, initial encounter
CPT/HCPCS: 99283